=== PATIENT | male | born 1990 | race Caucasian/White ===

== ENCOUNTER 2017-02-05 00:22 | Emergency (ER) | payer OTHER ==
[~2017-02-05] VITALS: Ht 172.7 cm; Wt 56.2 kg
[2017-02-05 00:46] VITALS: BP 160/102; PULSE 82; RESP 18; TEMP 98.5; O2SAT 99
[2017-02-05 01:16] LABS: BLOOD, URINE NEG (NEG); GLUCOSE,URINE NEG (NEG); KETONE, URINE NEG (NEG); NITRITE,URINE NEG (NEG)
[2017-02-05 01:22] LABS: URINE COLOR YELLOW (YELLW/STRAW)
[2017-02-05 01:23] LABS: COMMENT (UR) CULT NOT INDICATED; CULTURE IF INDICATED CULT NOT INDICATED; RBC, URINE 0-2 /hpf (0-3); SQUAMOUS EPITHELIAL CELL URINE 0-5 /hpf (0-5); WBC, URINE 0-2 /hpf (0-5)
--- NOTE | 2017-02-05 02:20 | PD ---
HPI Chief Complaint: Abdominal Pain Time Seen by Provider: 02:17 Travel History International Travel<30 days: No Contact w/Intl Traveler<30days: No Traveled to known affect area: No History of Present Illness HPI 26-year-old male presents to the emergency department for complaint of 2-3 days of intermittent seconds to minutes in duration. Denies fever chills nausea vomiting hematemesis coffee-ground emesis biliary emesis diarrhea constipation melena hematochezia. Patient's had no dysuria frequency or urgency. Patient denies history of gallstones peptic ulcer disease gastritis pancreatitis colitis family history of inflammatory bowel disease or premature onset diverticulitis. Patient denies any injury or trauma. Patient states that episodes are 1 or 2 seconds to one or 2 minutes in duration and resolved spontaneously. Patient does not recall a specific injury or contusion to the abdomen. Patient denies any chest pain or shortness of breath. No pleuritic pain no referred neck jaw back shoulder arm or abdominal pain. Patient takes no medications on a daily basis. Patient thought that he would be checked out before taking any medications. Patient's had no abdominal surgeries. Patient has no chronic medical conditions. Patient states she is under enormous stress lately and over the past 23 days stress is increased and as his stress is increased his symptoms have increased in frequency but not duration. Patient denies other concerns or complaints. PFSH Past Medical History Narrative Medical Asthma anxiety depression; alcohol use tobacco use; nursing notes reviewed Asthma: Yes ( A CHILD) Anxiety: Yes ( A CHILD) Depression: Yes ( A CHILD) Diminished Hearing: No Medical other: Yes (RECEIVED ACUTANE) Immunizations Current: Yes Tetanus Vaccination: < 5 Years Influenza Vaccination: No Past Surgical History Other Surgery: Yes (CYST REMOVED FROM FACE AND GENITALS) Social History Alcohol Use: Yes (DAILY 2 MIXED DRINKS ) Tobacco Use: Yes (1PPD) Substance Use: No Allergies-Medications (Allergen,Severity, Reaction): Coded Allergies: Latex (Verified Allergy, Severe, RASH, 02/05/17) Sulfa (Verified Allergy, Severe, Anaphylaxis, 02/05/17) Reported Meds & Prescriptions Reported Meds & Active Scripts Active No Active Prescriptions or Reported Medications Review of Systems Except as stated in HPI: all other systems reviewed are Neg Physical Exam Narrative GENERAL: Well-developed well-nourished male in no acute distress no respiratory distress SKIN: Warm and dry. HEAD: Normocephalic. EYES: No scleral icterus. No injection or drainage. NECK: Supple, trachea midline. No JVD or lymphadenopathy. CARDIOVASCULAR: Regular rate and rhythm without murmurs, gallops, or rubs. RESPIRATORY: Breath sounds equal bilaterally. No accessory muscle use. GASTROINTESTINAL: Abdomen soft, non-tender, nondistended. No guarding or rebound nontender no heel strike pain. MUSCULOSKELETAL: No cyanosis, or edema. BACK: Nontender without obvious deformity. No CVA tenderness. Data Data Last Documented VS Vital Signs Date Time Temp Pulse Resp B/P Pulse Ox O2 Delivery O2 Flow Rate FiO2 02/05/17 02:40 75 16 143/92 98 Room Air 02/05/17 00:46 98.5 Orders Urinalysis - C+S If Indicated (02/05/17 01:06) Labs Laboratory Tests Test 02/05/17 00:41 Urine Color YELLOW Urine Turbidity CLEAR Urine pH 6.0 Urine Specific [place] 1.007 Urine Protein NEG mg/dL Urine Glucose (UA) NEG mg/dL Urine Ketones NEG mg/dL Urine Occult Blood NEG Urine Nitrite NEG Urine Bilirubin NEG Urine Leukocyte Esterase NEG Urine RBC 0-2 /hpf Urine WBC 0-2 /hpf Urine Squamous Epithelial 0-5 /hpf Cells Urine Bacteria NONE /hpf Microscopic Urinalysis Comment CULT NOT INDICATED MDM Medical Decision Making Medical Screen Exam Complete: Yes Emergency Medical Condition: Yes Medical Record Reviewed: Yes Differential Diagnosis Gastritis peptic ulcer disease biliary colic pancreatitis renal colic atypical chest pain Narrative Course Patient was desirous of deferring any lab work or imaging studies therefore this time patient has a normal exam with normal vital signs and appears to have symptoms consistent with gastritis desires trial of outpatient with over-the- counter medications and will monitor for fever should he develop any persistent symptoms worsening symptoms or fever plan is to return. Patient offered prescription for antibiotic and defers this as well. Diagnosis Primary Impression: Gastritis Qualified Code: K29.70 - Gastritis without bleeding, unspecified chronicity, unspecified gastritis type Referrals: Primary Care Physician as needed Patient Instructions: General Instructions Additional Instructions: Increase fluid hydration Follow clear liquid diet for next 12-24 hours advance as tolerated to bland/ Lyndsey diet and regular diet as tolerated Take Pepcid AC per package directions or Zantac 150 twice daily for the next 7 days Avoid nonsteroidal anti-inflammatory medication such as Advil/Motrin/ibuprofen or Naprosyn/naproxen/Aleve May take acetaminophen/Tylenol as needed for mild discomfort or for fever 100.4 F or greater Monitor temperature every 4 hours take antipyretics for fever 100.4F or greater Follow up with primary care provider as needed Return to the emergency department for any increased pain vomiting or change in condition or any concerns Scripts No Active Prescriptions or Reported Meds Disposition: 01 DISCHARGE HOME Condition: Stable Chel Hennessy MD Feb 05, 2017 02:20
[2017-02-05 02:40] VITALS: BP 143/92; PULSE 75; RESP 16; O2SAT 98
== END 2017-02-05 02:47 | disposition home or self-care (01) ==
LOC: PHED 00:22
DX: K29.70 Gastritis, unspecified, without bleeding (principal)
CPT/HCPCS: 81001; 99284